=== PATIENT | female | born 1970 | race Two or more races ===

== ENCOUNTER → 2017-12-31 | Outpatient (CLI) | payer OTHER ==
[~2017-12-31] MED LIST: ALDACTONE25 MG; ALDACTONE25 MG PO; CARDURA1 MG PO; COZAAR100 MG; COZAAR100 MG PO; DOXAZOSIN MESYLA4 MG; HYDROCHLOROTHIA25 MG; HYDROCHLOROTHIA25 MG PO; LOPRESSOR HCT PO; LOPRESSOR25 MG PO; METOPROLOL SUC100 MG PO; METOPROLOL SUCC50 MG PO; NORVASC10 MG PO; NORVASC5 MG
== END | disposition home or self-care (01) ==
LOC: PPHC 08:35
DX: R51 Headache (principal); Z00.8 Encounter for other general examination; Z00.00 Encounter for general adult medical examination without abnormal findings

== ENCOUNTER 2018-02-04 08:23 | Outpatient (CLI) | payer OTHER | END 2018-02-04 13:45 | disposition home or self-care (01) | LOC: LAB 08:23 | DX: I10 Essential (primary) hypertension (principal); R51 Headache; R42 Dizziness and giddiness ==

== ENCOUNTER 2018-05-14 13:39 | Outpatient (CLI) | payer OTHER | END 2018-05-14 13:45 | disposition home or self-care (01) | LOC: LAB 13:39 | DX: J11.1 Influenza due to unidentified influenza virus with other respiratory manifestations (principal); R50.9 Fever, unspecified; R05 Cough; Z11.3 Encounter for screening for infections with a predominantly sexual mode of transmission ==

== ENCOUNTER → 2019-03-23 | Emergency (ER) | payer OTHER | END | disposition left against medical advice (07) | LOC: ER 14:40 | DX: Z53.20 Procedure and treatment not carried out because of patient's decision for unspecified reasons (principal) ==

== ENCOUNTER 2019-07-01 16:05 | Outpatient (CLI) | payer OTHER | END 2019-07-01 16:10 | disposition home or self-care (01) | LOC: LAB 16:05 | DX: J11.1 Influenza due to unidentified influenza virus with other respiratory manifestations (principal); A49.8 Other bacterial infections of unspecified site ==

== ENCOUNTER 2019-07-07 15:47 | Outpatient (CLI) | payer OTHER | END 2019-07-07 18:00 | disposition home or self-care (01) | LOC: LAB 15:47 | DX: R05 Cough (principal); J11.1 Influenza due to unidentified influenza virus with other respiratory manifestations ==

== ENCOUNTER 2021-08-28 08:00 | Outpatient (CLI) | payer OTHER | END 2021-08-28 08:30 | disposition home or self-care (01) | LOC: PPH VACUNA 08:00 | PROVIDERS: ATTEND Emergency Medicine Pediatric Emergency Medicine | DX: Z23 Encounter for immunization (principal) ==

== ENCOUNTER → 2021-11-01 | Outpatient (CLI) | payer OTHER | END | disposition home or self-care (01) | LOC: PPH VACUNA | PROVIDERS: ATTEND Emergency Medicine Pediatric Emergency Medicine | DX: Z23 Encounter for immunization (principal) ==

== ENCOUNTER 2022-01-10 16:49 | Inpatient (IN) | payer OTHER ==
[~2022-01-10] VITALS: Ht 165.1 cm; Wt 98.0 kg
== END 2022-01-18 15:28 | disposition home or self-care (01) | DRG 683 ==
LOC: ER 16:49 → SEC-K 01-11 10:58 → MEDI 01-11 12:10
PROVIDERS: ADMIT Internal Medicine; ATTEND Internal Medicine
PROC: 3E0F7SF Introduction of Other Gas into Respiratory Tract, Via Natural or Artificial Opening (ICD-10-PCS; 2022-01-10)
PROC: 4A12X4Z Monitoring of Cardiac Electrical Activity, External Approach (ICD-10-PCS; 2022-01-10)
PROC: B24BZZZ Ultrasonography of Heart with Aorta (ICD-10-PCS; principal; 2022-01-14)
PROC: 4A02XM4 Measurement of Cardiac Total Activity, External Approach (ICD-10-PCS; 2022-01-15)
PROC: 3E033HZ Introduction of Radioactive Substance into Peripheral Vein, Percutaneous Approach (ICD-10-PCS; 2022-01-15)
PROC: BR29YZZ Computerized Tomography (CT Scan) of Lumbar Spine using Other Contrast (ICD-10-PCS; 2022-01-16)
DX: I13.10 Hypertensive heart and chronic kidney disease without heart failure, with stage 1 through stage 4 chronic kidney disease, or unspecified chronic kidney disease (principal); N17.8 Other acute kidney failure; I16.9 Hypertensive crisis, unspecified; E87.1 Hypo-osmolality and hyponatremia; E11.65 Type 2 diabetes mellitus with hyperglycemia; E11.22 Type 2 diabetes mellitus with diabetic chronic kidney disease; N18.31 Chronic kidney disease, stage 3a; E66.8 Other obesity; E86.0 Dehydration; M54.6 Pain in thoracic spine

== ENCOUNTER 2022-08-02 13:16 | Outpatient (CLI) | payer OTHER | END 2022-08-02 15:03 | disposition home or self-care (01) | LOC: SONOGRAMA 13:16 | PROVIDERS: ATTEND Internal Medicine | DX: N18.32 Chronic kidney disease, stage 3b (principal) ==

== ENCOUNTER 2022-08-04 08:27 | Outpatient (CLI) | payer OTHER | END 2022-08-04 08:28 | disposition home or self-care (01) | LOC: LAB 08:27 | PROVIDERS: ATTEND Internal Medicine | DX: D64.9 Anemia, unspecified (principal); N39.0 Urinary tract infection, site not specified; R10.9 Unspecified abdominal pain; R80.9 Proteinuria, unspecified; N18.32 Chronic kidney disease, stage 3b ==

== ENCOUNTER → 2022-09-18 | Emergency (ER) | payer OTHER ==
[~2022-09-18] VITALS: Ht 165.1 cm; Wt 95.7 kg
[~2022-09-18] MED LIST changes: +ADULT LOW DOSE81 M1 PO; +CARVEDILOL25 MG; +JARDIANCE10 MG PO; +LANTUS SOL100 UNIT/1 SUBCUTANEO; +LIPITOR40 M1 PO; +LIPOFEN150 MG PO; +MICARDIS80 MG PO; +PLAVIX75 MG PO
== END | disposition home or self-care (01) ==
LOC: ER 13:31
DX: U07.1 COVID-19 (principal); E11.9 Type 2 diabetes mellitus without complications; Z79.4 Long term (current) use of insulin

== ENCOUNTER 2022-09-19 15:21 | Outpatient (CLI) | payer OTHER | END 2022-09-19 16:00 | disposition home or self-care (01) | LOC: ASH CLINIC 15:21 | PROVIDERS: ATTEND General Practice | DX: U07.1 COVID-19 (principal) ==

== ENCOUNTER → 2023-01-09 06:13 | Outpatient (CLI) | payer OTHER | END | disposition home or self-care (01) | LOC: LAB 06:13 | PROVIDERS: ATTEND Student in an Organized Health Care Education/Training Program | DX: E78.2 Mixed hyperlipidemia (principal); I10 Essential (primary) hypertension ==

== ENCOUNTER 2023-03-27 10:08 | Outpatient (CLI) | payer OTHER | END 2023-03-27 10:10 | disposition home or self-care (01) | LOC: LAB 10:08 | PROVIDERS: ATTEND Internal Medicine Cardiovascular Disease | DX: D64.9 Anemia, unspecified (principal); R10.9 Unspecified abdominal pain; E78.5 Hyperlipidemia, unspecified; E11.9 Type 2 diabetes mellitus without complications ==

== ENCOUNTER 2023-05-01 06:09 | Outpatient (CLI) | payer OTHER | END 2023-05-01 06:10 | disposition home or self-care (01) | LOC: LAB 06:09 | PROVIDERS: ATTEND Student in an Organized Health Care Education/Training Program | DX: E78.2 Mixed hyperlipidemia (principal); I10 Essential (primary) hypertension; D64.9 Anemia, unspecified; N39.0 Urinary tract infection, site not specified; R10.9 Unspecified abdominal pain; R80.9 Proteinuria, unspecified; N18.32 Chronic kidney disease, stage 3b ==

== ENCOUNTER 2023-05-26 03:53 | Inpatient (IN) | payer OTHER ==
[~2023-05-26] VITALS: Ht 167.6 cm; Wt 99.3 kg
[2023-05-26] MEDS ORDERED: NORVASC5 MG PO (04:23)
[2023-05-26] MEDS ORDERED: DOXAZOSIN MESYLA2 MG PO (04:24)
[2023-05-26] MEDS ORDERED: HYDROCHLOROTHIA25 MG PO (04:26)
[2023-05-26] MEDS ORDERED: LANTUS SOL100 UNIT/1 SQ (04:27)
[2023-05-26] MEDS ORDERED: ZETIA10 MG PO (04:27)
[2023-05-26] MEDS ORDERED: METFORMIN HCL500 M3 PO (04:27)
[2023-05-26] MEDS ORDERED: OMEGA-31000 MG PO (04:28)
== END 2023-05-28 11:36 | disposition designated cancer center or children's hospital (05) | DRG 281 ==
LOC: ER 03:53 → SURH 18:22 → MEDJ 05-28 08:35
PROVIDERS: ADMIT Internal Medicine; ATTEND Internal Medicine
PROC: B24BZZZ Ultrasonography of Heart with Aorta (ICD-10-PCS; principal; 2023-05-26)
PROC: 4A12X4Z Monitoring of Cardiac Electrical Activity, External Approach (ICD-10-PCS; 2023-05-26)
DX: I21.4 Non-ST elevation (NSTEMI) myocardial infarction (principal); I16.9 Hypertensive crisis, unspecified; N17.9 Acute kidney failure, unspecified; I24.9 Acute ischemic heart disease, unspecified; I12.9 Hypertensive chronic kidney disease with stage 1 through stage 4 chronic kidney disease, or unspecified chronic kidney disease; I13.10 Hypertensive heart and chronic kidney disease without heart failure, with stage 1 through stage 4 chronic kidney disease, or unspecified chronic kidney disease; I25.10 Atherosclerotic heart disease of native coronary artery without angina pectoris; E11.22 Type 2 diabetes mellitus with diabetic chronic kidney disease; N18.30 Chronic kidney disease, stage 3 unspecified; E66.8 Other obesity; Z79.4 Long term (current) use of insulin

== ENCOUNTER 2023-08-02 11:25 | Outpatient (CLI) | payer OTHER ==
[~2023-08-02 11:25] MED LIST changes: +DOXAZOSIN MESYLA2 MG PO; +LANTUS SOL100 UNIT/1 SQ; +METFORMIN HCL500 M3 PO; +NORVASC5 MG PO; +OMEGA-31000 MG PO; +ZETIA10 MG PO
== END 2023-08-02 11:35 | disposition home or self-care (01) ==
LOC: PPH VACUNA 11:25
PROVIDERS: ATTEND Emergency Medicine Pediatric Emergency Medicine
DX: Z23 Encounter for immunization (principal)

== ENCOUNTER 2024-01-08 07:47 | Inpatient (IN) | payer OTHER ==
[~2024-01-08] VITALS: Ht 165.1 cm; Wt 97.5 kg
--- NOTE | 2024-01-08 08:14 | NUR ---
SE RECIBE PACIENTE FEMENINA ALERTA Y ORIENTADA X3, REFIERE MAREOS Y PRESION EN EL PECH0 DESDE HOY EN LA MANANA. REFIERE DX DE HIPERTENSION. SE LANA S/V, BP: 130/79 Y SE REALIZA EKG. SE PRESENTA EKG A DRA. SHREMAN QUIEN REFIERE QUE SE COLOQUE EN FAST TRACK.
[2024-01-08] MEDS ORDERED: hydrOXYzine PAMOATE 25 MG CAPSULE PO STA (09:15)
--- NOTE | 2024-01-08 09:25 | NUR ---
SE LE ORIENTA A PACIENTE SOBRE LA ORDEN MEDICA, REFIERE ENTENDER LAS MISMAS. SE CONECTA A MONITOR CARDIACO, SE CANALIZA Y SE LE COLOCA H/L EN BRAZO BOB CON ANGIO #20 CON MEDIDAS ASEPTICAS, SE LE LANA LAS MUETRAS, SE REALIZA PLACA Y SE LE DA A GISELE EL MEDICAMENTO GUILLERMINA LA ORDEN MEDICA.
[2024-01-08 09:37] LABS: HEMATOCRIT 35.8 % (36.0-45.00); HEMOGLOBIN 12.1 g/dL (12.0-15.00); MEAN CELL VOLUME 85.8 fL (80.00-100.00); MEAN CORPUSCULAR HGB CONC 33.8 g/dl (32.0-36.0); PLATELET COUNT 246 K/uL (150-450); RED BLOOD COUNT 4.17 M/uL (4.00-6.00); RED CELL DISTRIBUTION WIDTH 16.2 % (11.5-14.5)
[2024-01-08] MEDS ORDERED: CLOPIDOGREL BISULFATE 75 MG TABLET PO SCH (10:51)
[2024-01-08] MEDS ORDERED: ATORVASTATIN CALCIUM 40 MG TABLET PO SCH (10:51)
[2024-01-08] MEDS ORDERED: FAMOTIDINE/PF 20 MG in 0.9 % SODIUM CHLORIDE 8 ML IV PUSH SCH (10:51)
[2024-01-08] MEDS ORDERED: INSULIN LISPRO 1,000 UNIT/10 ML UNITS SUBCUTANEO PRN (11:00)
[2024-01-08] MEDS ORDERED: MORPHINE SULFATE 2 MG/ML CARTRIDGE IV PRN (11:00)
[2024-01-08] MEDS ORDERED: NITROGLYCERIN IN 5 % DEXTROSE 250 ML IV SCH ×2 (11:00→12:30)
[2024-01-08] MEDS ORDERED: ONDANSETRON HCL 2 MG/ML VIAL IV PRN (11:00)
[2024-01-08 11:06] LABS: ALBUMIN 3.5 gm/dL (3.4-5.0); CALCIUM 9.5 mg/dL (8.5-10.1); CREATININE SERUM 1.55 mg/dL (0.55-1.02); GFR 34.98; PHOSPHOROUS 2.6 mg/dL (2.5-4.9); POTASSIUM 3.78 mEq/L (3.5-5.1)
[2024-01-08 14:11] LABS: INR 1.01; PARTIAL THROMBOPLASTIN TIME 28.5 SECONDS (22.0-34.0); PROTHROMBIN TIME 10.6 SECONDS (9.0-11.5)
[2024-01-08 14:15] LABS: ALBUMIN 3.5 gm/dL (3.4-5.0); BILIRUBIN TOTAL 0.76 mg/dL (0.3-1.2); CALCIUM 9.4 mg/dL (8.5-10.1); CREATININE SERUM 1.55 mg/dL (0.55-1.02); GFR 34.98; POTASSIUM 3.88 mEq/L (3.5-5.1); TOTAL PROTEIN 8.5 gm/dL (6.4-8.2)
[2024-01-08 14:22] LABS: CHOL HDL RATIO 2.9 (0-5.0); TSH 1.1 uIU/mL (0.358-3.74)
[2024-01-08 18:40] LABS: URINE APPEARANCE Clear; URINE BILIRRUBIN Negative (NEGATIVE); URINE BLOOD Negative; URINE COLOR Yellow; URINE GLUCOSE Negative (NEGATIVE); URINE LEUKOCYTE Negative; URINE NITRATE Negative; URINE PROTEIN Negative (NEGATIVE); URINE UROBILINOGEN 0.2 E.U./dl
[2024-01-08 18:41] LABS: URINE BACTERIA 282.2 uL (0.0-1933); URINE EPITHELIAL CELLS 8.8 uL (0.0-38.8); URINE RBC 2.8 uL (0.0-20.8); URINE WBC 5.7 uL (0.0-23.2)
[2024-01-09] MEDS ORDERED: ASPIRIN 81 MG TAB.CHEW PO SCH (09:00)
[2024-01-09] MEDS ORDERED: AMLODIPINE BESYLATE 5 MG TABLET PO SCH (09:00)
[2024-01-09] MEDS ORDERED: CARVEDILOL 25 MG TABLET PO SCH (09:00)
[2024-01-09] MEDS ORDERED: DOXAZOSIN MESYLATE 2 MG TABLET PO SCH (21:00)
== END 2024-01-09 19:22 | disposition home or self-care (01) | DRG 305 ==
LOC: ER 07:47 → SEC-K 11:27 → MEDI 21:04
PROVIDERS: General Practice; ADMIT Internal Medicine; ATTEND Internal Medicine
PROC: B246ZZZ Ultrasonography of Right and Left Heart (ICD-10-PCS; principal; 2024-01-08)
PROC: 4A12X4Z Monitoring of Cardiac Electrical Activity, External Approach (ICD-10-PCS; 2024-01-08)
DX: I16.9 Hypertensive crisis, unspecified (principal); I10 Essential (primary) hypertension; Z20.822 Contact with and (suspected) exposure to COVID-19

== ENCOUNTER 2024-01-29 20:59 | Inpatient (IN) | payer OTHER ==
[~2024-01-29] VITALS: Ht 160 cm; Wt 97.5 kg
--- NOTE | 2024-01-29 21:17 | NUR ---
SE RECIBE PTE FEMENINA ALERTA Y ORIENTADA EN LAS CHENG ESFERAS REFIERE DOLOR DE PECHO Y BRAZO R+ DESDE HACE UNAS HORAS. SE REALIZA EKG Y SE PRESENTA A , QUIEN REFIERE UBICAR PTE EN AREA DE PASILLO.
--- NOTE | 2024-01-29 23:40 | NUR ---
SE LE ORIENTA A PACIENTE SOBRE LA ORDEN MEDICA, REFIERE ENTENDER LAS MISMAS. SE LE JAY LA MUETRAS Y SE LE JAY LE PRESION ARTERIAL MANUAL Y SE NOTIFICA AL MEDICO EN TURNO GUILLERMINA LA ORDEN MEDICA.
[2024-01-30] MEDS ORDERED: EFFIENT10 MG (00:58)
[2024-01-30] MEDS ORDERED: ASPIRIN 325 MG TABLET.EC PO STA (01:06)
[2024-01-30] MEDS ORDERED: NITROGLYCERIN IN 5 % DEXTROSE 250 ML IV STA (01:06)
[2024-01-30] MEDS ORDERED: 0.9 % SODIUM CHLORIDE 1,000 ML IV ONE (01:15)
[2024-01-30] MEDS ORDERED: hydrOXYzine PAMOATE 50 MG CAPSULE PO ONE (01:15)
[2024-01-30 01:26] LABS: HEMATOCRIT 36.1 % (36.0-45.00); HEMOGLOBIN 12.1 g/dL (12.0-15.00); MEAN CELL VOLUME 87.6 fL (80.00-100.00); MEAN CORPUSCULAR HEMOGLOBIN 29.5 pg (27.00-32.0); MEAN CORPUSCULAR HGB CONC 33.6 g/dl (32.0-36.0); PLATELET COUNT 244 K/uL (150-450); RED BLOOD COUNT 4.12 M/uL (4.00-6.00); RED CELL DISTRIBUTION WIDTH 15.8 % (11.5-14.5)
--- NOTE | 2024-01-30 01:26 | NUR ---
SE COLOCA PACIENTE EN AREA DE CHEST PAIN EN CAMA #16 CON BARANDAS ELEVADAS. SE CONECTA A MONITOR CARDIACO Y OXIMETRIA DE PULSO. SE LE ORIENTA A PACIENTE Y A FAMILIAR SOBRE LAS ORDENES DE MEDICAS, REFIERE ENTENDER LAS MISMAS. SE CANALIZA EN BRAZO DERECHO CON ANGIO #20 Y SE LE COLOCA 0.9 NSS 1,000 BAJANDO A 100ML/HR Y SEGUNDA VENOPUNCION EN BRAZO DERECHO #20 Y SE LE COLOCA TRIDIL 50MG/ 250ML D/W 5% BAJANDO A 3ML/HR PATENTE KAL DE EDEMA Y ENROJECIMIENTO. SE LE LANA LAS MUETRAS Y SE LE ADMNITRAN LOS MEDICAMENTOS GUILLERMINA LA ORDEN MEDICA. SE LE REALIZA PLACA PORTABLE. SE CONSULTA CON CARDIOLOGO. SE OBSERVA POR CAMBIOS.
[2024-01-30 01:59] LABS: INR 0.96; PROTHROMBIN TIME 10.1 SECONDS (9.0-11.5)
[2024-01-30 02:04] LABS: ALBUMIN 3.5 gm/dL (3.4-5.0); BILIRUBIN TOTAL 0.49 mg/dL (0.3-1.2); CALCIUM 9.1 mg/dL (8.5-10.1); CREATININE SERUM 1.64 mg/dL (0.55-1.02); GFR 32.77; GLOBULINA 5.2 G/DL (2.4-3.5); POTASSIUM 3.97 mEq/L (3.5-5.1); TOTAL PROTEIN 8.7 gm/dL (6.4-8.2)
[2024-01-30 06:21] LABS: PH,URINE 5.5 (5.0-8.0); URINE APPEARANCE Cloudy; URINE BILIRRUBIN Negative (NEGATIVE); URINE BLOOD Negative; URINE COLOR Yellow; URINE GLUCOSE Negative (NEGATIVE); URINE LEUKOCYTE Negative; URINE NITRATE Negative; URINE PROTEIN Trace (NEGATIVE); URINE UROBILINOGEN 0.2 E.U./dl
[2024-01-30 06:25] LABS: URINE BACTERIA 94.4 uL (0.0-1933); URINE EPITHELIAL CELLS 1.8 uL (0.0-38.8); URINE RBC 2.4 uL (0.0-20.8); URINE WBC 2.1 uL (0.0-23.2)
--- NOTE | 2024-01-30 07:15 | NUR ---
SE RECIBE PTE ALERTA ORIENTADA X3.EN UNIDAD DE CHEST PAIN #16.CONECTADA A MONITOR CARDIACO HR-89(SINUSAL).VENOPUNCION PATENTE KAL DE EDEMA Y ERITEMA RECIBIENDO 0.9 NSS BAJANDO A 100ML/HR CON ANGIO #20 EN MANO DERECHA Y TRIDIL 50MG/250 ML BAJANDO A 2ML/HR CON ANGIO #18 EN MANO DERECHA.SE JAY EKG POR ORDEN MEDICA DE .PENDIENTE CONSULTA MEDICA CON CARDIOLOGO.
--- NOTE | 2024-01-30 09:11 | NUR ---
SE LE COLECTA MUESTRA GUILLERMINA ORDEN MEDICA BAJO MEDIDAS ASEPTICAS.
--- NOTE | 2024-01-30 15:03 | NUR ---
SE RECIBE PTE DE TURNO ANTERIOR POR RN VINCENT. PTE ALERTA Y ORIENTADA X3, EN ANIL CON BARANADAS ELEVADAS Y EN POSICION SEMI SENTADA. PTE SE OBSERVA CON BUEN PATRON RESPIRATORIO, SE LANA S/V BP 142/74, PULSO 90, RESPIRACIONES 20 Y SPO2 96. PTE CANALIZADO EN BRAZO DERECHO CON ANGIOS #20 Y #18 AMBOS LIBRES DE EDEMA Y ENROJECIMIENTO. PTE RECIBIENDO INFUSION DE 0.9 NSS @ 20ML/HR Y TRIDIL BAJANDO A 2ML/HR. SE OBSERVA ABDOMEN BLANDO AL TACTO Y CON PERISTALSIS PRESENTE. PTE CONECTADO A MONITOR CARDIACO Y OXIMETRIA. PTE REFIERE NO TENER DOLOR. QUEDA EN ESPERA CONSULTA CON DR. GORDON, SE MANTIENE BAJO OBSERVACION A PTE POR CAMBIO.
[2024-01-30] MEDS ORDERED: ATORVASTATIN CALCIUM 40 MG TABLET PO ONE (18:15)
[2024-01-30] MEDS ORDERED: ENOXAPARIN SODIUM 100 MG/ML SYRINGE SUBCUTANEO ONE (18:15)
[2024-01-30] MEDS ORDERED: METOPROLOL SUCCINATE 25 MG TAB.SR.24H PO ONE (18:15)
[2024-01-30] MEDS ORDERED: TICAGRELOR 90 MG TABLET PO ONE (18:15)
[2024-01-30] MEDS ORDERED: 0.9 % SODIUM CHLORIDE 1,000 ML IV SCH (18:15)
[2024-01-30] MEDS ORDERED: DEXTROSE 50 % IN WATER 0.5 G/ML DISP.SYRIN IV PRN (18:30)
[2024-01-30] MEDS ORDERED: ACETAMINOPHEN 500 MG GEL..CAP PO PRN (18:30)
[2024-01-30] MEDS ORDERED: INSULIN LISPRO 1,000 UNIT/10 ML UNITS SUBCUTANEO PRN (18:30)
[2024-01-30] MEDS ORDERED: ONDANSETRON HCL 4 MG in 0.9 % SODIUM CHLORIDE 50 ML IV PRN (18:30)
[2024-01-30 19:40] LABS: MAGNESIUM 2.1 mg/dL (1.8-2.4); PHOSPHOROUS 3.8 mg/dL (2.5-4.9)
[2024-01-30 19:41] LABS: CKMB 6.9 NG/ML (0.5-3.6)
[2024-01-30 21:05] LABS: ABG PH 7.478 (7.35-7.45); ABG PO2 78.3 mmHg (80-100); ABG pCO2 33.4 mmHg (35-45); BASE EXCESS 1.3 mmol/l; BICARBONATE 24.2 mmol/l (23-25); SaO2 96.4 %
[2024-01-30 21:06] LABS: Tco2 25.2 mmol/l; allen test SATISFACTORY; o2 21 %; puncture site RADIAL LEFT
[2024-01-31] MEDS ORDERED: hydrOXYzine PAMOATE 25 MG CAPSULE PO ONE (00:30)
[2024-01-31] MEDS ORDERED: METOPROLOL SUCCINATE 25 MG TAB.SR.24H PO ONE (00:30)
[2024-01-31] MEDS ORDERED: FAMOTIDINE/PF 20 MG/2 ML VIAL ONE (08:12)
[2024-01-31] MEDS ORDERED: TICAGRELOR 90 MG TABLET PO SCH (09:00)
[2024-01-31] MEDS ORDERED: ENOXAPARIN SODIUM 100 MG/ML SYRINGE SUBCUTANEO SCH (09:00)
[2024-01-31] MEDS ORDERED: ASPIRIN 81 MG TAB.CHEW PO SCH (09:00)
[2024-01-31] MEDS ORDERED: METOPROLOL SUCCINATE 50 MG TAB.SR.24H PO SCH (09:00)
[2024-01-31] MEDS ORDERED: FAMOTIDINE/PF 20 MG in 0.9 % SODIUM CHLORIDE 8 ML IV PUSH SCH (09:00)
[2024-01-31] MEDS ORDERED: NITROGLYCERIN IN 5 % DEXTROSE 250 ML IV SCH (09:00)
[2024-01-31] MEDS ORDERED: ATORVASTATIN CALCIUM 40 MG TABLET PO SCH (09:00)
[2024-01-31] MEDS ORDERED: METOPROLOL SUCCINATE 25 MG TAB.SR.24H PO SCH (09:00)
== END 2024-01-31 11:10 | disposition designated cancer center or children's hospital (05) | DRG 282 ==
LOC: ER 20:59 → ICU 01-30 18:48 → ICU-2 01-30 18:48 → ICU 01-30 21:51
PROVIDERS: General Practice; ADMIT Internal Medicine; ATTEND Internal Medicine
PROC: 4A033R1 Measurement of Arterial Saturation, Peripheral, Percutaneous Approach (ICD-10-PCS; principal; 2024-01-30)
DX: I21.3 ST elevation (STEMI) myocardial infarction of unspecified site (principal); I25.110 Atherosclerotic heart disease of native coronary artery with unstable angina pectoris; I25.119 Atherosclerotic heart disease of native coronary artery with unspecified angina pectoris; I13.10 Hypertensive heart and chronic kidney disease without heart failure, with stage 1 through stage 4 chronic kidney disease, or unspecified chronic kidney disease; N18.31 Chronic kidney disease, stage 3a; Z20.822 Contact with and (suspected) exposure to COVID-19

== ENCOUNTER 2024-06-01 00:08 | Inpatient (IN) | payer OTHER ==
[~2024-06-01] VITALS: Ht 165.1 cm; Wt 94.8 kg
[~2024-06-01 00:08] MED LIST changes: +EFFIENT10 MG; +MUCINEX DM ER1 EACH PO; +PAXLOVID 150-11 EAC1 PO; +SINGULAIR10 MG PO; +ZYRTEC10 MG PO
[2024-06-01] MEDS ORDERED: LIPITOR80 MG (00:37)
[2024-06-01] MEDS ORDERED: HYDRALAZINE HCL25 MG (00:39)
[2024-06-01] MEDS ORDERED: JARDIANCE10 MG (00:39)
[2024-06-01] MEDS ORDERED: ASPIRIN 325 MG TABLET.EC PO STA (01:41)
[2024-06-01] MEDS ORDERED: 0.9 % SODIUM CHLORIDE 1,000 ML IV ONE (01:45)
[2024-06-01] MEDS ORDERED: NITROGLYCERIN IN 5 % DEXTROSE 50 MG/250 ML BOTTLE IV ONE ×2 (01:45→01:46)
[2024-06-01] MEDS ORDERED: NITROGLYCERIN IN 5 % DEXTROSE 250 ML IV ONE (01:45)
[2024-06-01] MEDS ORDERED: hydrOXYzine PAMOATE 50 MG CAPSULE PO ONE (01:59)
[2024-06-01 02:06] LABS: HEMATOCRIT 35.1 % (36.0-45.00); HEMOGLOBIN 11.8 g/dL (12.0-15.00); MEAN CELL VOLUME 84.9 fL (80.00-100.00); MEAN CORPUSCULAR HEMOGLOBIN 28.5 pg (27.00-32.0); MEAN CORPUSCULAR HGB CONC 33.6 g/dl (32.0-36.0); PLATELET COUNT 230 K/uL (150-450); RED BLOOD COUNT 4.13 M/uL (4.00-6.00); RED CELL DISTRIBUTION WIDTH 16.2 % (11.5-14.5)
[2024-06-01 02:32] LABS: INR 1.08; PARTIAL THROMBOPLASTIN TIME 29.2 SECONDS (22.0-34.0); PROTHROMBIN TIME 11.3 SECONDS (9.0-11.5)
[2024-06-01 02:37] LABS: ALBUMIN 3.8 gm/dL (3.4-5.0); BILIRUBIN TOTAL 0.94 mg/dL (0.3-1.2); CALCIUM 9.5 mg/dL (8.5-10.1); CREATININE SERUM 1.5 mg/dL (0.55-1.02); GFR 36.32; GLOBULINA 4.6 G/DL (2.4-3.5); POTASSIUM 4.18 mEq/L (3.5-5.1); TOTAL PROTEIN 8.4 gm/dL (6.4-8.2)
[2024-06-01 02:55] LABS: PH,URINE 6.5 (5.0-8.0); URINE APPEARANCE Clear; URINE BILIRRUBIN Negative (NEGATIVE); URINE BLOOD Negative; URINE COLOR Yellow; URINE GLUCOSE Negative (NEGATIVE); URINE KETONE Negative (NEGATIVE); URINE LEUKOCYTE Negative; URINE NITRATE Negative; URINE PROTEIN Negative (NEGATIVE); URINE UROBILINOGEN 0.2 E.U./dl
[2024-06-01 02:59] LABS: URINE BACTERIA 319.9 uL (0.0-1933); URINE EPITHELIAL CELLS 6.6 uL (0.0-38.8); URINE RBC 3.8 uL (0.0-20.8)
[2024-06-01] MEDS ORDERED: FAMOTIDINE/PF 20 MG/2 ML VIAL IV SCH (17:20)
[2024-06-01] MEDS ORDERED: INSULIN LISPRO 1,000 UNIT/10 ML UNITS SUBCUTANEO PRN (17:30)
[2024-06-01] MEDS ORDERED: DEXTROSE 50 % IN WATER 0.5 G/ML DISP.SYRIN IV PRN (17:30)
[2024-06-01] MEDS ORDERED: CARVEDILOL 25 MG TABLET PO SCH (17:34)
[2024-06-01] MEDS ORDERED: DOXAZOSIN MESYLATE 2 MG TABLET PO SCH (17:35)
[2024-06-01] MEDS ORDERED: ONDANSETRON HCL 4 MG in 0.9 % SODIUM CHLORIDE 50 ML IV PRN (17:45)
[2024-06-01] MEDS ORDERED: 0.9 % SODIUM CHLORIDE 1,000 ML IV SCH (17:45)
[2024-06-01] MEDS ORDERED: ACETAMINOPHEN 325 MG TABLET PO PRN (17:45)
[2024-06-01 19:42] LABS: ALBUMIN 3.5 gm/dL (3.4-5.0); CREATININE SERUM 1.35 mg/dL (0.55-1.02); GFR 41.02; PHOSPHOROUS 3.4 mg/dL (2.5-4.9); POTASSIUM 3.81 mEq/L (3.5-5.1)
[2024-06-01] MEDS ORDERED: hydrALAZINE HCL 25 MG TABLET PO SCH (22:15)
[2024-06-02] MEDS ORDERED: PATIENTS OWN MEDICATION (MEDICAMENTO EN PISO) PO SCH (09:00)
[2024-06-02] MEDS ORDERED: ASPIRIN 81 MG TABLET.EC PO SCH (09:00)
[2024-06-02] MEDS ORDERED: ATORVASTATIN CALCIUM 40 MG TABLET PO SCH (09:00)
[2024-06-02] MEDS ORDERED: NIFEDIPINE 30 MG TAB.SA.OSM PO SCH (09:00)
== END 2024-06-03 13:42 | disposition home or self-care (01) | DRG 303 ==
LOC: ER 00:09 → MEDI 17:29 → SEC-K 17:53 → MEDI 19:02
PROVIDERS: General Practice; Internal Medicine Hematology & Oncology; ADMIT Internal Medicine; ATTEND Internal Medicine
PROC: 4A12X4Z Monitoring of Cardiac Electrical Activity, External Approach (ICD-10-PCS; 2024-06-01)
PROC: B24BYZZ Ultrasonography of Heart with Aorta using Other Contrast (ICD-10-PCS; principal; 2024-06-02)
DX: I25.10 Atherosclerotic heart disease of native coronary artery without angina pectoris (principal); I16.9 Hypertensive crisis, unspecified; I10 Essential (primary) hypertension

== ENCOUNTER 2024-09-15 16:00 | Outpatient (CLI) | payer OTHER ==
[~2024-09-15 16:00] MED LIST changes: +HYDRALAZINE HCL25 MG; +JARDIANCE10 MG; +LIPITOR80 MG
== END 2024-09-15 16:10 | disposition home or self-care (01) ==
LOC: PPH VACUNA 16:00
PROVIDERS: ATTEND Emergency Medicine Pediatric Emergency Medicine
DX: Z23 Encounter for immunization (principal)

== ENCOUNTER 2024-09-23 11:51 | Emergency (ER) | payer OTHER ==
[~2024-09-23] VITALS: Ht 165.1 cm; Wt 94.8 kg
[2024-09-23 12:58] LABS: HEMATOCRIT 37.1 % (36.0-45.00); HEMOGLOBIN 12.5 g/dL (12.0-15.00); MEAN CELL VOLUME 85.9 fL (80.00-100.00); MEAN CORPUSCULAR HGB CONC 33.7 g/dl (32.0-36.0); PLATELET COUNT 229 K/uL (150-450); RED BLOOD COUNT 4.32 M/uL (4.00-6.00); RED CELL DISTRIBUTION WIDTH 15.1 % (11.5-14.5)
[2024-09-23] MEDS ORDERED: NIFEDIPINE 10 MG CAPSULE PO ONE (13:00)
[2024-09-23] MEDS ORDERED: hydrOXYzine PAMOATE 50 MG CAPSULE PO ONE (13:00)
[2024-09-23 13:21] LABS: INR 1.03; PARTIAL THROMBOPLASTIN TIME 27.9 SECONDS (22.0-34.0); PROTHROMBIN TIME 11.2 SECONDS (9.0-11.5)
[2024-09-23 13:29] LABS: URINE APPEARANCE Clear; URINE BILIRRUBIN Negative (NEGATIVE); URINE BLOOD Negative; URINE COLOR Yellow; URINE KETONE Negative (NEGATIVE); URINE LEUKOCYTE Negative; URINE NITRATE Negative; URINE PROTEIN Negative (NEGATIVE); URINE UROBILINOGEN 0.2 E.U./dl
[2024-09-23 13:30] LABS: URINE BACTERIA 79.3 uL (0.0-1933); URINE EPITHELIAL CELLS 2.1 uL (0.0-38.8)
[2024-09-23 13:33] LABS: URINE GLUCOSE 500 MG/DL (NEGATIVE); URINE RBC 0.9 uL (0.0-20.8); URINE WBC 0.9 uL (0.0-23.2)
[2024-09-23 13:54] LABS: ALBUMIN 3.8 gm/dL (3.4-5.0); BILIRUBIN TOTAL 0.77 mg/dL (0.3-1.2); CALCIUM 9.2 mg/dL (8.5-10.1); CREATININE SERUM 1.65 mg/dL (0.55-1.02); GFR 32.54; GLOBULINA 4.5 G/DL (2.4-3.5); POTASSIUM 4.18 mEq/L (3.5-5.1); TOTAL PROTEIN 8.3 gm/dL (6.4-8.2)
[2024-09-23 15:49] VITALS: BP 145/81; O2SAT 98
== END 2024-09-23 17:32 | disposition home or self-care (01) ==
LOC: ER 11:51
PROVIDERS: General Practice
DX: I10 Essential (primary) hypertension (principal); E11.9 Type 2 diabetes mellitus without complications; Z79.84 Long term (current) use of oral hypoglycemic drugs; I50.9 Heart failure, unspecified; N28.9 Disorder of kidney and ureter, unspecified

== ENCOUNTER → 2024-10-01 08:42 | Outpatient (CLI) | payer OTHER ==
[2024-10-01 09:28] LABS: CREATININE SERUM 1.75 mg/dL (0.55-1.02)
== END | disposition home or self-care (01) ==
LOC: LAB 08:42
PROVIDERS: ATTEND Radiology Diagnostic Radiology
DX: I70.1 Atherosclerosis of renal artery (principal)

== ENCOUNTER 2024-10-01 09:08 | Outpatient (CLI) | payer OTHER | END 2024-10-01 09:13 | disposition home or self-care (01) | LOC: TOM 09:08 | DX: I70.1 Atherosclerosis of renal artery (principal); I10 Essential (primary) hypertension; Z01.818 Encounter for other preprocedural examination | CPT/HCPCS: 74175 ==

== ENCOUNTER 2025-01-02 09:20 | Outpatient (CLI) | payer OTHER ==
[2025-01-02 10:50] LABS: HEMATOCRIT 33.6 % (36.0-45.00); HEMOGLOBIN 11.1 g/dL (12.0-15.00); MEAN CELL VOLUME 86.9 fL (80.00-100.00); MEAN CORPUSCULAR HEMOGLOBIN 28.7 pg (27.00-32.0); MEAN CORPUSCULAR HGB CONC 33.1 g/dl (32.0-36.0); PLATELET COUNT 218 K/uL (150-450); RED BLOOD COUNT 3.87 M/uL (4.00-6.00); RED CELL DISTRIBUTION WIDTH 16.7 % (11.5-14.5)
[2025-01-02 11:22] LABS: ALBUMIN 3.4 gm/dL (3.4-5.0); BILIRUBIN TOTAL 0.81 mg/dL (0.3-1.2); CALCIUM 8.8 mg/dL (8.5-10.1); CREATININE SERUM 1.65 mg/dL (0.55-1.02); GFR 32.42; GLOBULINA 4.3 G/DL (2.4-3.5); POTASSIUM 4.06 mEq/L (3.5-5.1); TOTAL PROTEIN 7.7 gm/dL (6.4-8.2)
== END 2025-01-02 09:22 | disposition home or self-care (01) ==
LOC: LAB 09:20
PROVIDERS: ATTEND Internal Medicine Cardiovascular Disease
DX: D64.9 Anemia, unspecified (principal); R10.9 Unspecified abdominal pain

== ENCOUNTER 2025-01-14 06:33 | Outpatient (CLI) | payer OTHER ==
[2025-01-14 08:03] LABS: HEMATOCRIT 34.2 % (36.0-45.00); HEMOGLOBIN 11.6 g/dL (12.0-15.00); MEAN CELL VOLUME 87.4 fL (80.00-100.00); MEAN CORPUSCULAR HEMOGLOBIN 29.5 pg (27.00-32.0); MEAN CORPUSCULAR HGB CONC 33.7 g/dl (32.0-36.0); PLATELET COUNT 220 K/uL (150-450); RED BLOOD COUNT 3.92 M/uL (4.00-6.00); RED CELL DISTRIBUTION WIDTH 16.5 % (11.5-14.5)
[2025-01-14 08:27] LABS: ALBUMIN 3.4 gm/dL (3.4-5.0); BILIRUBIN TOTAL 0.57 mg/dL (0.3-1.2); CREATININE SERUM 1.63 mg/dL (0.55-1.02); GFR 32.88; GLOBULINA 4.4 G/DL (2.4-3.5); POTASSIUM 4.42 mEq/L (3.5-5.1); TOTAL PROTEIN 7.8 gm/dL (6.4-8.2)
== END 2025-01-14 06:36 | disposition home or self-care (01) ==
LOC: LAB 06:33
PROVIDERS: ATTEND Student in an Organized Health Care Education/Training Program
DX: D50.8 Other iron deficiency anemias (principal); I10 Essential (primary) hypertension; E26.9 Hyperaldosteronism, unspecified

== ENCOUNTER → 2025-07-05 08:16 | Outpatient (CLI) | payer OTHER ==
[2025-07-05 08:40] LABS: BASO % 0.4 % (0.1-1.2); EOS # 0.15 (0.04-0.54); EOS % 2.2 % (0.7-7.0); LYMPH # 2.39 (1.18-3.74); LYMPH % 34.8 % (19.3-53.1); MEAN PLATELET VOLUME 9.90 fl (9.4-12.4); MONO # 0.55 (0.24-0.82); MONO % 8.0 % (4.7-12.5); NEUT # 3.74 (1.56-6.13); NEUT % 54.5 % (34.0-71.1); RED CELL DISTRIBUTION WIDTH 15.2 % (11.6-14.4)
[2025-07-05 09:29] LABS: URINE APPEARANCE Clear; URINE BILIRRUBIN Negative (NEGATIVE); URINE BLOOD Negative; URINE COLOR Yellow; URINE GLUCOSE Negative (NEGATIVE); URINE KETONE Negative (NEGATIVE); URINE LEUKOCYTE Trace; URINE NITRATE Negative; URINE PROTEIN Negative (NEGATIVE); URINE UROBILINOGEN 0.2 E.U./dl
[2025-07-05 09:32] LABS: URINE BACTERIA 1365.6 uL (0.0-1933); URINE EPITHELIAL CELLS 21.0 uL (0.0-38.8); URINE RBC 5.1 uL (0.0-20.8); URINE WBC 27.3 uL (0.0-23.2)
[2025-07-05 09:40] LABS: ALT/SGPT 30.0 U/L (12-78); AST/SGOT 15.0 U/L (15-37); BILIRUBIN TOTAL 0.75 mg/dL (0.3-1.2); BUN CREA RATIO 19.0 (7.0-25.0); CHOL HDL RATIO 2.7 (0-5.0); CREATININE SERUM 1.29 mg/dL (0.55-1.02); GFR 43.07; GLOBULINA 4.1 G/DL (2.4-3.5); GLUCOSE FASTING 97.0 mg/dL (65-100); HDL 42.0 mg/dl (40-60); LDL 29.0 mg/dl (0-130); OSMOLALITY SERUM 287.0 MOSM/KG (275-295); VLDL 40.0 (0-39)
[2025-07-05 09:47] LABS: URINE CAST 0.29 uL (0.0-1.40)
== END | disposition home or self-care (01) ==
LOC: LAB 08:16
DX: D64.9 Anemia, unspecified (principal); N39.0 Urinary tract infection, site not specified; R10.9 Unspecified abdominal pain; E78.5 Hyperlipidemia, unspecified; E55.9 Vitamin D deficiency, unspecified; E11.9 Type 2 diabetes mellitus without complications

== ENCOUNTER 2025-08-24 14:09 | Outpatient (CLI) | payer OTHER | END 2025-08-24 14:11 | disposition home or self-care (01) | LOC: MAMO-SONO 14:09 | PROVIDERS: ATTEND Surgery | DX: N60.11 Diffuse cystic mastopathy of right breast (principal); N60.12 Diffuse cystic mastopathy of left breast ==

== ENCOUNTER 2025-09-30 09:57 | Emergency (ER) | payer OTHER ==
[~2025-09-30] VITALS: Ht 165.1 cm; Wt 94.8 kg
[2025-09-30] MEDS ORDERED: CARDURA1 MG (10:14)
[2025-09-30] MEDS ORDERED: NIFEDIPINE20 MG PO (10:14)
[2025-09-30 10:15] VITALS: BP 162/96; O2SAT 96
[2025-09-30] MEDS ORDERED: DEXAMETHASONE SODIUM PHOSPHATE 4 MG/ML VIAL IM STA (10:27)
[2025-09-30] MEDS ORDERED: CEFTRIAXONE SODIUM 1,000 MG VIAL IM STA (10:29)
[2025-09-30] MEDS ORDERED: CETIRIZINE HCL 10 MG TABLET PO ONE (10:30)
[2025-09-30] MEDS ORDERED: ACETAMINOPHEN 500 MG GEL..CAP PO ONE ×2 (10:30→10:48)
[2025-09-30] MEDS ORDERED: GUAIFENESIN 200 MG/10 ML BLIST.PACK PO ONE ×2 (10:30→10:49)
[2025-09-30] MEDS ORDERED: CETIRIZINE HCL 5MG/5ML BLIST.PACK PO ONE (10:48)
[2025-09-30] MEDS ORDERED: DEXAMETHASONE SODIUM PHOSPHATE 4 MG/ML VIAL ONE (10:48)
[2025-09-30] MEDS ORDERED: CEFTRIAXONE SODIUM 1,000 MG VIAL ONE (10:48)
[2025-09-30 11:16] LABS: BASO % 0.5 % (0.1-1.2); EOS # 0.07 (0.04-0.54); EOS % 1.1 % (0.7-7.0); LYMPH # 1.24 (1.18-3.74); LYMPH % 19.3 % (19.3-53.1); MEAN PLATELET VOLUME 10.50 fl (9.4-12.4); MONO # 0.87 (0.24-0.82); NEUT # 4.20 (1.56-6.13); NEUT % 65.3 % (34.0-71.1); RED CELL DISTRIBUTION WIDTH 15.3 % (11.6-14.4)
[2025-09-30 11:24] LABS: MONO % 13.5 % (4.7-12.5)
[2025-09-30 12:45] LABS: COVID-19 AG NEGATIVE (NEGATIVE)
[2025-09-30] MEDS ORDERED: OSEL75CA PO (13:28)
[2025-09-30] MEDS ORDERED: DELSYM COUGH+C180 ML PO (13:28)
[2025-09-30] MEDS ORDERED: CLARITIN10 M2 PO (13:28)
== END 2025-09-30 13:31 | disposition home or self-care (01) ==
LOC: ER 09:58
PROVIDERS: General Practice
DX: J10.1 Influenza due to other identified influenza virus with other respiratory manifestations (principal); Z20.822 Contact with and (suspected) exposure to COVID-19; E11.9 Type 2 diabetes mellitus without complications; Z79.84 Long term (current) use of oral hypoglycemic drugs; I10 Essential (primary) hypertension